=== PATIENT | female | born 1950 | race Caucasian/White ===

== ENCOUNTER 2021-02-13 14:47 | Inpatient (IN) ==
--- NOTE | 2021-02-13 15:21 | Emergency Department Note ---
History of Present Illness General Chief complaint: Leg Injury/Pain Stated complaint: Possible Leg fracture Time Seen by Provider: 02/13/21 15:01 Source: patient History of Present Illness Provider complaint: Right leg pain Onset (ago): month(s) Location: lower extremity and right Radiation: non-radiation Severity: moderate Pain Consistency: + constant Quality: + aching Exacerbated By: + movement (Weightbearing) Associated symptoms: no chest pain, no cough, no fever/chills, no malaise, no nausea/vomiting and no shortness of breath This is a 70-year-old male sent over from her doctor's office due to an abnormal MRI performed on the . The patient states that she has been having right salazar pain since September of last year. She initially had a tib-fib x-ray which showed no fracture and was told that she had sciatica. She was placed on pred nisone which seem to resolve her pain. Her pain went away for 2 weeks but then came back. She describes it as an ache. She rates it as moderate in severity. It is worse when she tries to walk on it. She has not been able to put any weight on it for the past 2 weeks. It is associated with swelling to the right leg. She had seen [facility] and had an MRI of the lumbar spine and tib-fib. She was told that she might have a fracture to the tib-fib and she was sent here. She also has a lesion in her lumbar spine. She has no prior history of cancer and states that she had a normal mammogram recently. She denies any fever, cough or cold symptoms, chest pain, shortness of breath, myalgias, malaise, abdominal pain, vomiting, diarrhea or urinary symptoms. The patient did have a DVT in her left leg 8 years ago and was taken off of anticoagulants about a year ago. She has had no symptoms to her left leg. She denies any trauma to her right leg. She denies any unintentional weight loss but she does state that she has lost about 10 pounds since September because she has not been eating as much. Home Medications Medication Instructions Recorded Confirmed Type hydrochlorothiazide 25 mg PO QAM 02/13/21 02/13/21 History levothyroxine [Synthroid] 50 mcg PO QAM 02/13/21 02/13/21 History potassium 99 mg PO QAM 02/13/21 02/13/21 History turmeric root extract 500 mg PO QAM 02/13/21 02/13/21 History Allergies Allergy/AdvReac Type Severity Reaction Status Date / Time No Known Allergies Allergy Unverified 02/13/21 18:22 Past Med/Surg History Medical History DVT (deep venous thrombosis) Hypothyroidism Family History Mother Breast cancer Social History Smoking Status: Never smoker Feels Safe at Home: Yes Review of Systems See HPI for pertinent positives & negatives. and A total of 10 systems reviewed and were otherwise negative Physical Exam Vital Signs Vital Signs - 24 hr 02/13/21 15:13 02/13/21 17:36 02/13/21 19:29 Temperature 37.2 C Temperature Source Oral Pulse Rate 120 H Pulse Rate [Apical] 80 103 H Pulse Rhythm Irregular Pulse Strength Normal Respiratory Rate 22 18 22 Respiratory Depth Normal Blood Pressure 200/114 H Blood Pressure [Left Arm] 150/88 H 176/139 H Blood Pressure Mean 142 Blood Pressure Mean [Left Arm] 108 151 Pulse Oximetry 95 98 92 Oxygen Delivery Method Room Air Room Air Room Air Sepsis Recent Fever Within 48 Hours No Sepsis New/Unexplained Change in Mental Status No Sepsis Action Taken by Nursing No Action Required Constitutional: Vital signs reviewed. Eyes: Pupils are equal round reactive to light. Conjunctiva are noninjected. ENT: Pharynx is clear without erythema or exudate. Mucous membranes are moist. Neck supple without meningeal signs. Respiratory: Clear to auscultation bilaterally. Breath sounds are equal bilaterally. Cardiovascular: Regular rate and rhythm. No rubs or gallops. GI: Soft, nondistended and nontender. Bowel sounds are present. Musculoskeletal: Swelling to the right lower extremities. Dorsalis pedis pulses 2+. There is tenderness to the anterior lower tib-fib without deformity. There is no tenderness to the calf or gastrocnemius or soleus muscles. No erythema or increased warmth to the right lower extremity. Integumentary: No cyanosis. or jaundice. Neurological: The patient is awake and alert. No focal deficits. Psychiatric: Normal affect. Not anxious appearing. Course Administered Medications Discontinued Medications Enoxaparin Sodium (Enoxaparin 1 Mg/Kg) 120 mg 1 mg/kg (120 mg) SC NOW STA Stop: 02/13/21 18:22 Last Admin: 02/13/21 18:40 Dose: Not Given Documented by: [id number] Enoxaparin Sodium (Enoxaparin Inj 120 Mg/0.8 Ml Syr) 120 mg SQ NOW STA Stop: 02/13/21 18:30 Last Admin: 02/13/21 18:39 Dose: 120 mg Documented by: [id number] Morphine Sulfate (Morphine Sulfate 4 Mg/Ml 1 Ml Carp\\Vial) 4 mg IV NOW STA Stop: 02/13/21 18:05 Last Admin: 02/13/21 18:16 Dose: 4 mg Documented by: [id number] Ondansetron HCl (Ondansetron Inj 2 Mg/Ml 2 Ml Vial) 4 mg IV NOW STA Stop: 02/13/21 18:05 Last Admin: 02/13/21 18:16 Dose: 4 mg Documented by: [id number] Medical Decision Making Differential Diagnosis Breast cancer, colon cancer, metastatic disease, DVT, superficial thrombophlebitis Medical Records Attestation: I reviewed the patient's medical records. I did perform a limited focused review of portions of the patient's old chart on the electronic medical record. The patient has had no prior visits to this hospital. The patient had an MRI at 611 on February 05. MRI of the lumbar spine demonstrates mild to moderate degenerative findings with minimal acute or subacute compression fracture of L2. There is a lesion of low T1 and bright inversion recovery signal on the right side of the L2 vertebral body superiorly. MRI of the tib-fib and calf demonstrates large lesion within the proximal to mid right tibial shaft causing endosteal scalloping. There is marked cortical thinning at the posterior upper portion of lesion; aggressive periostitis noted in this region. This is worrisome for impending fracture. Same-day MRI of the lumbar spine was concerning for a lesion in the L2 vertebral body and a questionable lesion in the left ilium adjacent to the left SI joint. Patchy edema within the distal aspect of the right medial head gastrocnemius muscle and the soleus muscle concerning for myositis. Home Medications Current Medication List: was personally reviewed by me Laboratory Data Attestation: I reviewed the patient's lab results. Result diagrams: 02/13/21 15:35 02/13/21 15:35 Lab Results 02/13/21 02/13/21 02/13/21 Range/Units 15:35 15:35 15:35 WBC 6.29 (4.8-10.8) K/uL RBC 4.89 (4.2-5.4) M/uL Hgb 13.9 (12.0-16.0) g/dL Hct 41.1 (37-47) % MCV 84.0 (80-100) fL MCH 28.4 (25-34) pg MCHC 33.8 (32-36) g/dL RDW Std Deviation 40.9 (36.4-46.3) fL RDW Coeff of Héctor 13.5 (11.5-14.5) % Plt Count 207 (130-400) K/uL MPV 9.2 (7.4-10.4) fL Immature Gran % (Auto) 0.3 % Neut % (Auto) 68.8 % Lymph % (Auto) 21.0 % [place] % (Auto) 7.5 % Eos % (Auto) 1.9 % Baso % (Auto) 0.5 % Neut # (Auto) 4.33 (1.4-6.5) K/uL Lymph # (Auto) 1.32 (1.2-3.4) K/uL [place] # (Auto) 0.47 (0.11-0.59) K/uL Eos # (Auto) 0.12 (0-0.5) K/uL Baso # (Auto) 0.03 (0-0.2) K/uL Immature Gran # (Auto) 0.02 (0.00-0.02) K/uL PT 11.4 (9.0-12.0) Seconds INR 1.1 (0.9-1.1) APTT 22.5 (21.0-31.0) Seconds PTT Ratio 0.9 D-Dimer (0-500) ug/L FEU Sodium 138 (136-145) mmol/L Potassium 3.1 L (3.5-5.1) mmol/L Chloride 106 (98-107) mmol/L Carbon Dioxide 26 (21-32) mmol/L Anion Gap 6.0 (3-11) BUN 13 (7-18) mg/dl Creatinine 0.82 (0.6-1.2) mg/dl Est Cr Clr Drug Dosing 82.1 ml/min Est GFR ( Amer) 85.2 Est GFR (Non-Af Amer) 73.5 BUN/Creatinine Ratio 16.1 (10-20) Glucose 106 H (70-99) mg/dl Calcium 9.5 (8.5-10.1) mg/dl Total Bilirubin 0.7 (0.2-1) mg/dl AST 20 (15-37) U/L ALT 20 (12-78) U/L Alkaline Phosphatase 87 (45-117) U/L Total Protein 8.5 H (6.4-8.2) gm/dl Albumin 3.6 (3.4-5.0) gm/dl Globulin 4.9 H (2.5-4.0) gm/dl Albumin/Globulin Ratio 0.7 L (0.9-2) COVID-19 Eval Order 02/13/21 02/13/21 Range/Units 15:35 18:17 WBC (4.8-10.8) K/uL RBC (4.2-5.4) M/uL Hgb (12.0-16.0) g/dL Hct (37-47) % MCV (80-100) fL MCH (25-34) pg MCHC (32-36) g/dL RDW Std Deviation (36.4-46.3) fL RDW Coeff of Héctor (11.5-14.5) % Plt Count (130-400) K/uL MPV (7.4-10.4) fL Immature Gran % (Auto) % Neut % (Auto) % Lymph % (Auto) % [place] % (Auto) % Eos % (Auto) % Baso % (Auto) % Neut # (Auto) (1.4-6.5) K/uL Lymph # (Auto) (1.2-3.4) K/uL [place] # (Auto) (0.11-0.59) K/uL Eos # (Auto) (0-0.5) K/uL Baso # (Auto) (0-0.2) K/uL Immature Gran # (Auto) (0.00-0.02) K/uL PT (9.0-12.0) Seconds INR (0.9-1.1) APTT (21.0-31.0) Seconds PTT Ratio D-Dimer 7250 H* (0-500) ug/L FEU Sodium (136-145) mmol/L Potassium (3.5-5.1) mmol/L Chloride (98-107) mmol/L Carbon Dioxide (21-32) mmol/L Anion Gap (3-11) BUN (7-18) mg/dl Creatinine (0.6-1.2) mg/dl Est Cr Clr Drug Dosing ml/min Est GFR ( Amer) Est GFR (Non-Af Amer) BUN/Creatinine Ratio (10-20) Glucose (70-99) mg/dl Calcium (8.5-10.1) mg/dl Total Bilirubin (0.2-1) mg/dl AST (15-37) U/L ALT (12-78) U/L Alkaline Phosphatase (45-117) U/L Total Protein (6.4-8.2) gm/dl Albumin (3.4-5.0) gm/dl Globulin (2.5-4.0) gm/dl Albumin/Globulin Ratio (0.9-2) COVID-19 Eval Order CovFluRsv at [facility] Imaging Data Radiologist's Impression: Venous Doppler Study 02/13/21 15:16 ULTRASOUND RIGHT LOWER EXTREMITY VENOUS CLINICAL HISTORY: Right calf pain. COMPARISON STUDY: No priors. TECHNIQUE: Real-time, grayscale, and color Doppler sonography of the deep veins of the right lower extremity was performed from the inguinal crease to the calf. Compression and augmentation were utilized. FINDINGS: There is occlusive deep venous thrombosis identified in the right popliteal vein. This extends into the calf within the posterior tibial and peroneal veins. The common femoral and superficial femoral veins are patent and normally compressible. The greater saphenous vein and the profunda femoris vein at the junction with the common femoral vein are clear. IMPRESSION: There is occlusive deep venous thrombosis identified in the right popliteal vein extending into the calf. See above. ACT 112: Negative or not required by law. Electronically signed by: Nikhil Luna M.D. 02/13/2021 5:21 PM Tibia/Fibula X-Ray 02/13/21 17:09 RIGHT TIBIA AND FIBULA 2 VIEWS CLINICAL HISTORY: Right leg injury. The patient felt a "crack". FINDINGS: AP and lateral views of the right tibia and fibula are obtained. No prior studies are available for comparison at the time of dictation. The skeletal structures are osteopenic. No fibular fracture is identified. There is a permeative/destructive lesion within the proximal tibial shaft which measures 4 cm in length. There is surrounding irregular periosteal, as well as evidence of a nondisplaced pathologic fracture. The knee and ankle joints are grossly maintained. Soft tissue edema is noted in the calf. IMPRESSION: 1. There is a permeative/destructive lesion within the proximal tibial shaft with aggressive appearing periosteal reaction. Neoplasm is the diagnosis of exclusion. 2. There is an associated nondisplaced pathologic fracture through this lesion. 3. Soft tissue edema is noted in the calf. Electronically signed by: Nikhil Luna M.D. 02/13/2021 5:41 PM ECG Data Attestation: I personally reviewed and interpreted this ECG as follows: Indication: + tachycardia Rate (beats per minute): 110 Rhythm: + sinus tachycardia ECG ST segments: no ST elevation ECG Findings: + Other (Baseline motion artifact); no PVCs MDM Narrative I did evaluate the patient as noted above. Patient is presenting with right lower extremity pain since September. She did have an MRI on the eighth of this month of her lumbar spine and tib-fib which showed pathologic lesions at L2 as well as her tibia. She was seen by her primary care physician who sent her here today for further evaluation. IV access was established. I did place an order for continuous cardiac monitoring. The monitor showed sinus tachycardia at rate of 103 bpm. I did order and personally review the patient's 12-lead EKG as de scribed above. There is baseline artifact but she appears to have sinus tachycardia. I did order and personally reviewed the images of the patient's tib-fib x-rays as described above. She has a pathologic fracture of the proximal tibia. I did order and review the patient's blood work as noted in the electronic medical record. CBC is unremarkable. Electrolytes demonstrate a potassium of 3.1 but otherwise unremarkable. She is on a thiazide diuretic. Covid testing is negative. I did order a Doppler ultrasound of the right lower extremity. I did review the images myself as well as the radiology report as described above. She does have a DVT of the right popliteal and tibial veins. I did discuss the test results with the patient. She was given IV morphine and Zofran for pain control. I did discuss case with Dr. Garladn of orthopedics who recommended a long-leg splint. I did order a posterior long-leg splint. She will require further care and evaluation in the hospital. I did discuss risks and benefits of anticoagulation with her. She was agreeable to anticoagulation and given subcu Lovenox. 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, Acute hypokalemia, Acute deep vein thrombosis (DVT) of right lower extremity Patient Disposition: Being Evaluated by Hospitalist Forms Stand Alone Forms: My [facility] Prescriptions Prescriptions: No Action potassium 99 mg Tablet 99 mg PO QAM RF: 0 levothyroxine [Synthroid] 50 mcg tablet 50 mcg PO QAM RF: 0 hydrochlorothiazide 25 mg tablet 25 mg PO QAM RF: 0 turmeric root extract 500 mg Capsule 500 mg PO QAM RF: 0 Referrals Referrals: Monica Fair MD [Primary Care Provider] - Discharge Problem: 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
[2021-02-13 15:50] LABS: Basophils # (auto) 0.03 K/uL (0-0.2); Basophils % (auto) 0.5 %; Eosinophils # (auto) 0.12 K/uL (0-0.5); Eosinophils % (auto) 1.9 %; Hematocrit (blood only) 41.1 % (37-47); Hemoglobin 13.9 g/dL (12.0-16.0); Immature Granulocytes # (auto) 0.02 K/uL (0.00-0.02); Immature Granulocytes % (auto) 0.3 %; Lymphocytes # (auto) 1.32 K/uL (1.2-3.4); Mean Corpuscular Hemoglobin 28.4 pg (25-34); Mean Corpuscular Hgb Conc 33.8 g/dL (32-36); Mean Platelet Volume 9.2 fL (7.4-10.4); Monocytes # (auto) 0.47 K/uL (0.11-0.59); Monocytes % (auto) 7.5 %; Neutrophils # (auto) 4.33 K/uL (1.4-6.5); Neutrophils % (auto) 68.8 %; Platelet Count 207 K/uL (130-400); RDW Coefficient of Variation 13.5 % (11.5-14.5); RDW Standard Deviation 40.9 fL (36.4-46.3); Red Blood Count 4.89 M/uL (4.2-5.4); White Blood Count 6.29 K/uL (4.8-10.8)
[2021-02-13 16:03] LABS: INR 1.1 (0.9-1.1); Partial Thromboplastin Ratio 0.9; Partial Thromboplastin Time 22.5 Seconds (21.0-31.0); Prothrombin Time 11.4 Seconds (9.0-12.0)
[2021-02-13 16:06] LABS: Albumin Level 3.6 gm/dl (3.4-5.0); BUN Creatinine Ratio 16.1 (10-20); Calcium 9.5 mg/dl (8.5-10.1); Creatinine Clr Calc Pharmacy 82.1 ml/min; Est GFR (African American) 85.2; Est GFR (Non-African American) 73.5; Potassium 3.1 mmol/L (3.5-5.1)
[2021-02-13 16:09] LABS: Albumin Globulin Ratio 0.7 (0.9-2); Bilirubin,Total 0.7 mg/dl (0.2-1); Globulin 4.9 gm/dl (2.5-4.0); Total Protein 8.5 gm/dl (6.4-8.2)
--- NOTE | 2021-02-13 17:23 | Ultrasound Report ---
ULTRASOUND RIGHT LOWER EXTREMITY VENOUS CLINICAL HISTORY: Right calf pain. COMPARISON STUDY: No priors. TECHNIQUE: Real-time, grayscale, and color Doppler sonography of the deep veins of the right lower ex tremity was performed from the inguinal crease to the calf. Compression and augmentation were utilize d. FINDINGS: There is occlusive deep venous thrombosis identified in the right popliteal vein. This exte nds into the calf within the posterior tibial and peroneal veins. The common femoral and superficial femoral veins are patent and normally compressible. The greater saphenous vein and the profunda femor is vein at the junction with the common femoral vein are clear. IMPRESSION: There is occlusive deep venous thrombosis identified in the right popliteal vein extendin g into the calf. See above. ACT 112: Negative or not required by law. Electronically signed by: Nikhil Luna M.D. 02/13/2021 5:21 PM
--- NOTE | 2021-02-13 17:42 | XRay Report ---
RIGHT TIBIA AND FIBULA 2 VIEWS CLINICAL HISTORY: Right leg injury. The patient felt a "crack". FINDINGS: AP and lateral views of the right tibia and fibula are obtained. No prior studies are avail able for comparison at the time of dictation. The skeletal structures are osteopenic. No fibular frac ture is identified. There is a permeative/destructive lesion within the proximal tibial shaft which m easures 4 cm in length. There is surrounding irregular periosteal, as well as evidence of a nondispla [place] pathologic fracture. The knee and ankle joints are grossly maintained. Soft tissue edema is noted in the calf. IMPRESSION: 1. There is a permeative/destructive lesion within the proximal tibial shaft with aggressive appearin g periosteal reaction. Neoplasm is the diagnosis of exclusion. 2. There is an associated nondisplaced pathologic fracture through this lesion. 3. Soft tissue edema is noted in the calf. Electronically signed by: Nikhil Luna M.D. 02/13/2021 5:41 PM
[2021-02-13] MEDS ORDERED: MoRPHine SULFATE 4 MG/ML 1 ML CARP\\VIAL IV STA (18:04)
[2021-02-13] MEDS ORDERED: ONDANSETRON INJ 2 MG/ML 2 ML VIAL IV STA (18:04)
[2021-02-13] MEDS ORDERED: ENOXAPARIN 1 MG/KG SC STA (18:21)
[2021-02-13] MEDS ORDERED: ENOXAPARIN INJ 120 MG/0.8 ML SYR SQ STA (18:29)
[2021-02-13 19:12] LABS: D Dimer 7250 ug/L FEU (0-500)
[2021-02-13 19:41] LABS: Influenza A virus by PCR Negative (Neg); Influenza B virus by PCR Negative (Neg); RSV by PCR Negative (Neg); SARS CoV2 RNA(COVID-19) InHosp NEGATIVE (Negative)
--- NOTE | 2021-02-13 19:47 | XRay Report ---
SINGLE VIEW CHEST CLINICAL HISTORY: Destructive bony lesion of the right tibia. FINDINGS: An AP, portable, upright chest radiograph is obtained. No prior studies are available for c omparison at the time of dictation. The heart is enlarged. The pulmonary vasculature is noncongested. There is mild bibasilar scarring/atelectasis. No airspace consolidation or large pleural effusion is identified. No pneumothorax is seen. The skeletal structures are osteopenic. The bony thorax is chester sly intact. IMPRESSION: Cardiomegaly with no active disease in the chest. ACT 112: Negative or not required by law. Electronically signed by: Nikhil Luna M.D. 02/13/2021 7:46 PM
[2021-02-13] MEDS ORDERED: POTASSIUM CHLORIDE CRTAB 20 MEQ TABCR PO STA (19:54)
--- NOTE | 2021-02-13 19:54 | History & Physical Report ---
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: Right leg pain since September Large lesion within the proximal to mid right tibial shaft in MRI on 02/04/2021 MRI of the lumbar spine showed mild to moderate degenerative findings in the lumbar spine, minimal acute or subacute compression fracture of L2 vertebral body, relation of low T1 and bright inversion recovery signal in the right side of the L2 vertebral body possible etiologies include atypical appearing benign hemangioma versus malignant neoplasm Abnormal pharmaceutical localization at the junction of the proximal and mid third of the right tibia, anterior aspect of the left third rib and several foci throughout the calvarium suggesting underlying metastatic disease Nondisplaced pathological fracture involving the proximal tibial shaft with aggressive periosteal reaction Suggestive of neoplasm/multiple myeloma Ortho consulted We will keep the leg immobilized Multiple bone lesions involving the ribs, spine, skeletal bone and calvarium suggesting possible bone malignancy/secondary/multiple myeloma Negative colonoscopy 4 years ago R/O any Ovarian/Uterine pathology (2) Acute deep vein thrombosis (DVT) of right lower extremity: History of prothrombin gene mutation and DVT Not been taking anticoagulation for long time Noted to have right proximal popliteal DVTs Discussed with the patient and will start Lovenox D-dimer is elevated and will get CTA to rule out pulmonary embolism (3) Hypothyroidism: Continue replacement (4) Acute hypokalemia: We will give supplement and hold hydrochlorothiazide (5) Prothrombin gene mutation: (6) Myositis: 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 She went to see her new PCP today at [facility] and when she was trying to climb up to the examination table she got more pain involving the right leg and from that point she was brought into the emergency room for further evaluation. She does not have any pain at rest and she denies any other symptoms of fever and/or chills, cough or phlegm, palpitation, any abdominal pain nausea and/or vomiting. She has had right leg pain since September and has had course of prednisone with improvement in the past. She underwent an MRI of the tibia-fibula on eighth of this month and that showed large lesion within the proximal mid to right tibial shaft with marked cortical thinning at the posterior upper portion of this lesion and aggressive periostitis noted at this lesion too. The scan also showed myositis involving the right medial head of gastrocnemius muscle. She also had a bone scan done on of this month which showed abnormal pharmaceutical localization at the junction of the proximal and middle third of the right tibia and other area as mentioned below. At the emergency room she was hemodynamically stable with blood pressure on the upper side and the x-ray of the right tibia-fibula showed pathological fracture and also noted to have deep venous thrombosis involving the lower extremity. Her D-dimer was markedly elevated and she will have a CT air to rule out pulmonary embolism as well. Was admitted to medical telemetry unit for continuation of care Allergies Allergy/AdvReac Type Severity Reaction Status Date / Time No Known Allergies Allergy Unverified 02/13/21 18:22 Home Medications Medication Instructions Recorded Confirmed Type hydrochlorothiazide 25 mg PO QAM 02/13/21 02/13/21 History levothyroxine [Synthroid] 50 mcg PO QAM 02/13/21 02/13/21 History potassium 99 mg PO QAM 02/13/21 02/13/21 History turmeric root extract 500 mg PO QAM 02/13/21 02/13/21 History Past Med/Surg History Medical History DVT (deep venous thrombosis) Hypothyroidism Family History Mother Breast cancer Social History Smoking Status: Never smoker Second Hand Exposure: No; Do You Dip or Chew Tobacco: No; Tobacco Cessation Education Requested by Patient: No Hx Alcohol Use: No Hx Substance Use: No Preferred Language: Scottish Communication Ability: Effective Beliefs That Will Affect Care: None Current Living Situation: Spouse Other Information That Helps Us Care for You: No Feels Safe at Home: Yes Safety Concerns: Feels Safe At This Time Assistive Devices: None Review of Systems Review of Systems: All systems reviewed & are unremarkable except as noted in HPI & below Physical Exam Physical Exam: Lying in bed comfortably Constitutional: well developed, well nourished and + obese; not ill appearing Eyes: PERRL, conjunctivae normal, anicteric sclerae ENMT: external ear and nose normal, oropharynx normal Neck: trachea midline, no thyromegaly Respiratory: no respiratory distress Auscultation: lungs clear to auscultation bilaterally Cardiovascular: Rate/Rhythm: regular rate, regular rhythm and + tachycardic Heart Sounds: no murmur Extremities: + edema (Trace edema bilaterally) Gastrointestinal (Abdomen): Inspection/Auscultation: normal bowel sounds; abdomen not distended Percussion/Palpation: abdomen soft; abdomen nontender Musculoskeletal: Pain in the right leg with movement Neurologic: Alert awake and oriented x3, no focal sensory or motor deficit appreciated Psychiatric: A+Ox3, euthymic affect Results & Data Results & Data ([facility]) Vital Signs (Past 12 Hours) Vital Signs Temp Pulse Pulse Resp BP BP Pulse Ox 02/13/21 19:29 103 H 22 176/139 H 92 02/13/21 17:36 80 18 150/88 H 98 02/13/21 15:13 37.2 C 120 H 22 200/114 H 95 Laboratory Results Short CBC 02/13/21 Range/Units 15:35 WBC 6.29 (4.8-10.8) K/uL Hgb 13.9 (12.0-16.0) g/dL Hct 41.1 (37-47) % Plt Count 207 (130-400) K/uL BMP 02/13/21 15:35 Sodium 138 Potassium 3.1 L Chloride 106 Carbon Dioxide 26 BUN 13 Creatinine 0.82 Glucose 106 H Calcium 9.5 Liver Function 02/13/21 Range/Units 15:35 Total Bilirubin 0.7 (0.2-1) mg/dl AST 20 (15-37) U/L ALT 20 (12-78) U/L Alkaline Phosphatase 87 (45-117) U/L Albumin 3.6 (3.4-5.0) gm/dl Medications Administered Current Inpatient Medications Enoxaparin Sodium (Enoxaparin Inj 120 Mg/0.8 Ml Syr) 120 mg SQ Q12H ALINA Stop: 03/16/21 08:59 Code Status & VTE Plan VTE Prophylaxis Plan VTE Prophylaxis will be ordered: Yes (1) 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
[2021-02-13] MEDS ORDERED: OPTIRAY 350 500ml IV ONE (20:44)
[2021-02-13] MEDS ORDERED: amLODIPine BESYLATE 5 MG TAB PO STA (21:07)
--- NOTE | 2021-02-13 21:16 | CT Scan Report ---
CT ANGIOGRAM OF THE CHEST CLINICAL HISTORY: Dyspnea. Deep venous thrombosis. COMPARISON STUDY: Chest x-ray dated 02/13/2021. TECHNIQUE: Following the IV administration of 102 cc of Optiray 350, CT angiogram of the chest was pe rformed from the upper abdomen to the thoracic inlet utilizing the pulmonary embolus protocol. Images are reviewed in the axial, sagittal, and coronal planes. 3-D MIPS images are created and assessed. I V contrast was administered without complication. A dose lowering technique was utilized adhering to the principles of ALARA. CT DOSE: 636.19 mGy.cm FINDINGS: Thyroid: Imaged portions of the thyroid gland are normal in size and attenuation. Thoracic aorta: The thoracic aorta is normal in caliber and demonstrates standard 3-vessel arch anato my. No dissection is seen. Pulmonary vasculature: The pulmonary trunk is normal in caliber. There are small peripheral pulmonary emboli within distal segmental/subsegmental branches the right lower lobe pulmonary artery. The ángel ining pulmonary vessels appear clear. Heart: The heart is enlarged and and without pericardial effusion. Lungs and pleural spaces: There is no airspace consolidation or pleural effusion. Dependent atelectas is is noted at the lung bases. The trachea and central airways are clear. No concerning pulmonary les ion is identified. Mediastinum: There is no mediastinal lymphadenopathy. Ekaterina: Clear. Axillae: There is no axillary lymphadenopathy. Upper abdomen: There is a 1.3 cm peripherally calcified splenic artery aneurysm. A small hiatal herni a is noted. Skeletal structures: The skeletal structures are osteopenic. Mild degenerative change is seen through out the thoracic spine. Arthritic change is noted in the shoulders. No lytic or blastic bony lesions are seen. IMPRESSION: 1. There are small/peripheral distal segmental/subsegmental pulmonary emboli within branches of the r ight lower lobe pulmonary artery. 2. Cardiomegaly. 3. There is no airspace consolidation or pleural effusion. 4. Additional findings as above. ACT 112: Negative or not required by law. Electronically signed by: Nikhil Luna M.D. 02/13/2021 9:14 PM
[2021-02-13] MEDS: NSS + 20MEQ KCL 20 MEQ/1,000 ML BAG IV SCH (22:32)
[2021-02-13] MEDS: HYDROmorphone INJ 0.5 MG/0.5 ML SYR IV PRN (22:33)
[2021-02-14] MEDS: ENOXAPARIN INJ 120 MG/0.8 ML SYR SQ SCH ×2 (06:21→20:07)
[2021-02-14] MEDS: LEVOTHYROXINE SODIUM 50 MCG TABLET PO SCH (06:22)
[2021-02-14 07:39] LABS: Basophils # (auto) 0.02 K/uL (0-0.2); Basophils % (auto) 0.3 %; Eosinophils # (auto) 0.12 K/uL (0-0.5); Eosinophils % (auto) 1.8 %; Hematocrit (blood only) 38.7 % (37-47); Immature Granulocytes # (auto) 0.01 K/uL (0.00-0.02); Immature Granulocytes % (auto) 0.2 %; Lymphocytes # (auto) 1.34 K/uL (1.2-3.4); Lymphocytes % (auto) 20.2 %; Mean Corpuscular Hemoglobin 28.5 pg (25-34); Mean Corpuscular Hgb Conc 33.6 g/dL (32-36); Mean Corpuscular Volume 84.9 fL (80-100); Mean Platelet Volume 9.5 fL (7.4-10.4); Monocytes # (auto) 0.76 K/uL (0.11-0.59); Monocytes % (auto) 11.4 %; Neutrophils # (auto) 4.39 K/uL (1.4-6.5); Neutrophils % (auto) 66.1 %; Platelet Count 210 K/uL (130-400); RDW Coefficient of Variation 13.9 % (11.5-14.5); RDW Standard Deviation 42.7 fL (36.4-46.3); Red Blood Count 4.56 M/uL (4.2-5.4); White Blood Count 6.64 K/uL (4.8-10.8)
[2021-02-14 08:01] LABS: BUN Creatinine Ratio 13.7 (10-20); Calcium 8.4 mg/dl (8.5-10.1); Creatinine Clr Calc Pharmacy 83.1 ml/min; Est GFR (African American) 89.1; Est GFR (Non-African American) 76.9; Potassium 3.8 mmol/L (3.5-5.1)
[2021-02-14] MEDS: amLODIPine BESYLATE 5 MG TAB PO SCH (08:06)
--- NOTE | 2021-02-14 10:03 | Orthopedic Consultation ---
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 Patient currently being worked up for primary cancer, agree with consultation with heme-onc, for definitive treatment of right tibia we would like close follow-up[facility] for now maintain splint immobilization, pain control, nonweightbearing right lower extremity, will defer to the medical team for pharmacologic DVT treatment. Thank you for the consultation. History of Present Illness Reason for Consultation: Right tibia pathologic fracture Attending Physician: Adalberto Dickerson MD History of Present Illness The patient is a 70-year-old female who with no previous history of cancer who presented to [facility] on 02/13/2021 secondary to increasing pain and inability to ambulate on her right lower extremity. Has been followed by Dr. Puente over the last several months due to increasing pain to her right lower extremity, diagnosed with right tibia bone lesion underwent MRI and bone scan and was in the process for further work-up with Dr. Taylor for which she has an appointment with on 02/20/2021. Also was establishing a new PCP with Louie on 02/13/2021 when she was transferring to the exam table she felt increasing pain to her right lower extremity and subsequently transferred to the emergency department and x-rays obtained demonstrated a nondisplaced pathologic fracture of her right proximal one third tibia. Patient also has lesions on left third rib and L2. Patient denies any significant weight loss, night sweats, has family history of breast cancer however recent mammogram negative. Allergies Allergy/AdvReac Type Severity Reaction Status Date / Time No Known Allergies Allergy Unverified 02/13/21 18:22 Home Medications Medication Instructions Recorded Confirmed Type hydrochlorothiazide 25 mg PO QAM 02/13/21 02/13/21 History levothyroxine [Synthroid] 50 mcg PO QAM 02/13/21 02/13/21 History potassium 99 mg PO QAM 02/13/21 02/13/21 History turmeric root extract 500 mg PO QAM 02/13/21 02/13/21 History Patient History Medical History DVT (deep venous thrombosis) Hypothyroidism Family History Mother Breast cancer Social History Smoking Status: Never smoker Second Hand Exposure: No; Do You Dip or Chew Tobacco: No; Tobacco Cessation Education Requested by Patient: No Hx Alcohol Use: No Hx Substance Use: No Preferred Language: Irish Communication Ability: Effective Beliefs That Will Affect Care: None Current Living Situation: Spouse Other Information That Helps Us Care for You: No Feels Safe at Home: Yes Safety Concerns: Feels Safe At This Time Assistive Devices: None Review of Systems Review of Systems: All systems reviewed & are unremarkable except as noted in HPI & below Constitutional: as per Subjective / HPI Physical Exam Physical Exam: Right lower extremity is neurovascular and sensory intact grossly, splint immobilization in place, compartment soft nontender. Constitutional: WD/WN, vitals as above Results & Data ([facility]) Vital Signs (Past 12 Hours) Vital Signs Temp Pulse Pulse Resp BP Pulse Ox 02/14/21 08:46 112 H 02/14/21 07:34 36.8 C 110 H 18 128/79 94 02/14/21 03:16 36.4 C L 102 H 16 135/85 96 02/13/21 23:59 106 H 02/13/21 23:07 118 H Laboratory Results 02/14/21 02/14/21 02/14/21 Range/Units 07:15 07:15 07:15 WBC (4.8-10.8) K/uL RBC (4.2-5.4) M/uL Hgb (12.0-16.0) g/dL Hct (37-47) % MCV (80-100) fL MCH (25-34) pg MCHC (32-36) g/dL RDW Std Deviation (36.4-46.3) fL RDW Coeff of Héctor (11.5-14.5) % Plt Count (130-400) K/uL MPV (7.4-10.4) fL Immature Gran % (Auto) % Neut % (Auto) % Lymph % (Auto) % [place] % (Auto) % Eos % (Auto) % Baso % (Auto) % Neut # (Auto) (1.4-6.5) K/uL Lymph # (Auto) (1.2-3.4) K/uL [place] # (Auto) (0.11-0.59) K/uL Eos # (Auto) (0-0.5) K/uL Baso # (Auto) (0-0.2) K/uL Immature Gran # (Auto) (0.00-0.02) K/uL PT (9.0-12.0) Seconds INR (0.9-1.1) APTT (21.0-31.0) Seconds PTT Ratio D-Dimer (0-500) ug/L FEU Sodium (136-145) mmol/L Potassium (3.5-5.1) mmol/L Chloride (98-107) mmol/L Carbon Dioxide (21-32) mmol/L Anion Gap (3-11) BUN (7-18) mg/dl Creatinine (0.6-1.2) mg/dl Est Cr Clr Drug Dosing ml/min Est GFR ( Amer) Est GFR (Non-Af Amer) BUN/Creatinine Ratio (10-20) Glucose (70-99) mg/dl Calcium (8.5-10.1) mg/dl Total Bilirubin (0.2-1) mg/dl AST (15-37) U/L ALT (12-78) U/L Alkaline Phosphatase (45-117) U/L Total Protein (6.4-8.2) gm/dl Total Protein (PEP) Albumin (3.4-5.0) gm/dl Albumin (PEP) Globulin (2.5-4.0) gm/dl Albumin/Globulin Ratio (0.9-2) Qadcc-0-Dsisvbpmw Qzoob-1-Rvoxvvawf Ckoy-0-Lptwwqvv Qxpw-2-Swsqwewj Gamma Globulins Monoclonal Peak 3 Ser Monoclonl Protein Ser Monoclonal Prot 2 PEP Interpretation Carcinoembryonic Ag < 0.5 (0-2.5) ng/ml CA 19-9 Antigen Pending CA 125 Antigen Pending TSH Pending Serum Immunofixation COVID-19 Eval Order SARS-CoV-2 (PCR) (Negative) Influenza Type A (PCR) (Neg) Influenza Type B (PCR) (Neg) RSV (RT-PCR) (Neg) 02/14/21 02/14/21 02/14/21 Range/Units 07:15 07:15 07:15 WBC 6.64 (4.8-10.8) K/uL RBC 4.56 (4.2-5.4) M/uL Hgb 13.0 (12.0-16.0) g/dL Hct 38.7 (37-47) % MCV 84.9 (80-100) fL MCH 28.5 (25-34) pg MCHC 33.6 (32-36) g/dL RDW Std Deviation 42.7 (36.4-46.3) fL RDW Coeff of Héctor 13.9 (11.5-14.5) % Plt Count 210 (130-400) K/uL MPV 9.5 (7.4-10.4) fL Immature Gran % (Auto) 0.2 % Neut % (Auto) 66.1 % Lymph % (Auto) 20.2 % [place] % (Auto) 11.4 % Eos % (Auto) 1.8 % Baso % (Auto) 0.3 % Neut # (Auto) 4.39 (1.4-6.5) K/uL Lymph # (Auto) 1.34 (1.2-3.4) K/uL [place] # (Auto) 0.76 H (0.11-0.59) K/uL Eos # (Auto) 0.12 (0-0.5) K/uL Baso # (Auto) 0.02 (0-0.2) K/uL Immature Gran # (Auto) 0.01 (0.00-0.02) K/uL PT (9.0-12.0) Seconds INR (0.9-1.1) APTT (21.0-31.0) Seconds PTT Ratio D-Dimer (0-500) ug/L FEU Sodium 139 (136-145) mmol/L Potassium 3.8 D (3.5-5.1) mmol/L Chloride 107 (98-107) mmol/L Carbon Dioxide 28 (21-32) mmol/L Anion Gap 4.0 (3-11) BUN 11 (7-18) mg/dl Creatinine 0.79 (0.6-1.2) mg/dl Est Cr Clr Drug Dosing 83.1 ml/min Est GFR ( Amer) 89.1 Est GFR (Non-Af Amer) 76.9 BUN/Creatinine Ratio 13.7 (10-20) Glucose 98 (70-99) mg/dl Calcium 8.4 L (8.5-10.1) mg/dl Total Bilirubin (0.2-1) mg/dl AST (15-37) U/L ALT (12-78) U/L Alkaline Phosphatase (45-117) U/L Total Protein (6.4-8.2) gm/dl Total Protein (PEP) Pending Albumin (3.4-5.0) gm/dl Albumin (PEP) Pending Globulin (2.5-4.0) gm/dl Albumin/Globulin Ratio (0.9-2) Ggnbs-7-Yfzhhxmqn Pending Wenub-7-Giydxaptu Pending Qlbh-7-Ecwdxikz Pending Nlfd-1-Ylvnucxw Pending Gamma Globulins Pending Monoclonal Peak 3 Pending Ser Monoclonl Protein Pending Ser Monoclonal Prot 2 Pending PEP Interpretation Pending Carcinoembryonic Ag (0-2.5) ng/ml CA 19-9 Antigen CA 125 Antigen TSH Serum Immunofixation Pending COVID-19 Eval Order SARS-CoV-2 (PCR) (Negative) Influenza Type A (PCR) (Neg) Influenza Type B (PCR) (Neg) RSV (RT-PCR) (Neg) 02/13/21 02/13/21 02/13/21 Range/Units 18:17 18:17 15:35 WBC (4.8-10.8) K/uL RBC (4.2-5.4) M/uL Hgb (12.0-16.0) g/dL Hct (37-47) % MCV (80-100) fL MCH (25-34) pg MCHC (32-36) g/dL RDW Std Deviation (36.4-46.3) fL RDW Coeff of Héctor (11.5-14.5) % Plt Count (130-400) K/uL MPV (7.4-10.4) fL Immature Gran % (Auto) % Neut % (Auto) % Lymph % (Auto) % [place] % (Auto) % Eos % (Auto) % Baso % (Auto) % Neut # (Auto) (1.4-6.5) K/uL Lymph # (Auto) (1.2-3.4) K/uL [place] # (Auto) (0.11-0.59) K/uL Eos # (Auto) (0-0.5) K/uL Baso # (Auto) (0-0.2) K/uL Immature Gran # (Auto) (0.00-0.02) K/uL PT (9.0-12.0) Seconds INR (0.9-1.1) APTT (21.0-31.0) Seconds PTT Ratio D-Dimer 7250 H* (0-500) ug/L FEU Sodium (136-145) mmol/L Potassium (3.5-5.1) mmol/L Chloride (98-107) mmol/L Carbon Dioxide (21-32) mmol/L Anion Gap (3-11) BUN (7-18) mg/dl Creatinine (0.6-1.2) mg/dl Est Cr Clr Drug Dosing ml/min Est GFR ( Amer) Est GFR (Non-Af Amer) BUN/Creatinine Ratio (10-20) Glucose (70-99) mg/dl Calcium (8.5-10.1) mg/dl Total Bilirubin (0.2-1) mg/dl AST (15-37) U/L ALT (12-78) U/L Alkaline Phosphatase (45-117) U/L Total Protein (6.4-8.2) gm/dl Total Protein (PEP) Albumin (3.4-5.0) gm/dl Albumin (PEP) Globulin (2.5-4.0) gm/dl Albumin/Globulin Ratio (0.9-2) Souio-4-Okrbnjtqd Nppok-4-Oxqsikvte Axad-9-Decgbddk Wdni-4-Hqbtooad Gamma Globulins Monoclonal Peak 3 Ser Monoclonl Protein Ser Monoclonal Prot 2 PEP Interpretation Carcinoembryonic Ag (0-2.5) ng/ml CA 19-9 Antigen CA 125 Antigen TSH Serum Immunofixation COVID-19 Eval Order [facility] at [facility] SARS-CoV-2 (PCR) NEGATIVE (Negative) Influenza Type A (PCR) Negative (Neg) Influenza Type B (PCR) Negative (Neg) RSV (RT-PCR) Negative (Neg) 02/13/21 02/13/21 02/13/21 Range/Units 15:35 15:35 15:35 WBC 6.29 (4.8-10.8) K/uL RBC 4.89 (4.2-5.4) M/uL Hgb 13.9 (12.0-16.0) g/dL Hct 41.1 (37-47) % MCV 84.0 (80-100) fL MCH 28.4 (25-34) pg MCHC 33.8 (32-36) g/dL RDW Std Deviation 40.9 (36.4-46.3) fL RDW Coeff of Héctor 13.5 (11.5-14.5) % Plt Count 207 (130-400) K/uL MPV 9.2 (7.4-10.4) fL Immature Gran % (Auto) 0.3 % Neut % (Auto) 68.8 % Lymph % (Auto) 21.0 % [place] % (Auto) 7.5 % Eos % (Auto) 1.9 % Baso % (Auto) 0.5 % Neut # (Auto) 4.33 (1.4-6.5) K/uL Lymph # (Auto) 1.32 (1.2-3.4) K/uL [place] # (Auto) 0.47 (0.11-0.59) K/uL Eos # (Auto) 0.12 (0-0.5) K/uL Baso # (Auto) 0.03 (0-0.2) K/uL Immature Gran # (Auto) 0.02 (0.00-0.02) K/uL PT 11.4 (9.0-12.0) Seconds INR 1.1 (0.9-1.1) APTT 22.5 (21.0-31.0) Seconds PTT Ratio 0.9 D-Dimer (0-500) ug/L FEU Sodium 138 (136-145) mmol/L Potassium 3.1 L (3.5-5.1) mmol/L Chloride 106 (98-107) mmol/L Carbon Dioxide 26 (21-32) mmol/L Anion Gap 6.0 (3-11) BUN 13 (7-18) mg/dl Creatinine 0.82 (0.6-1.2) mg/dl Est Cr Clr Drug Dosing 82.1 ml/min Est GFR ( Amer) 85.2 Est GFR (Non-Af Amer) 73.5 BUN/Creatinine Ratio 16.1 (10-20) Glucose 106 H (70-99) mg/dl Calcium 9.5 (8.5-10.1) mg/dl Total Bilirubin 0.7 (0.2-1) mg/dl AST 20 (15-37) U/L ALT 20 (12-78) U/L Alkaline Phosphatase 87 (45-117) U/L Total Protein 8.5 H (6.4-8.2) gm/dl Total Protein (PEP) Albumin 3.6 (3.4-5.0) gm/dl Albumin (PEP) Globulin 4.9 H (2.5-4.0) gm/dl Albumin/Globulin Ratio 0.7 L (0.9-2) Nqhld-0-Kyweawhby Wapfp-9-Njsinjrsb Ykbl-0-Jcdgtjfu Whvc-3-Hixpcqkq Gamma Globulins Monoclonal Peak 3 Ser Monoclonl Protein Ser Monoclonal Prot 2 PEP Interpretation Carcinoembryonic Ag (0-2.5) ng/ml CA 19-9 Antigen CA 125 Antigen TSH Serum Immunofixation COVID-19 Eval Order SARS-CoV-2 (PCR) (Negative) Influenza Type A (PCR) (Neg) Influenza Type B (PCR) (Neg) RSV (RT-PCR) (Neg) Diagnostic Findings RIGHT TIBIA AND FIBULA 2 VIEWS CLINICAL HISTORY: Right leg injury. The patient felt a "crack". FINDINGS: AP and lateral views of the right tibia and fibula are obtained. No prior studies are available for comparison at the time of dictation. The skeletal structures are osteopenic. No fibular fracture is identified. There is a permeative/destructive lesion within the proximal tibial shaft which measures 4 cm in length. There is surrounding irregular periosteal, as well as evidence of a nondisplaced pathologic fracture. The knee and ankle joints are grossly maintained. Soft tissue edema is noted in the calf. IMPRESSION: 1. There is a permeative/destructive lesion within the proximal tibial shaft with aggressive appearing periosteal reaction. Neoplasm is the diagnosis of exclusion. 2. There is an associated nondisplaced pathologic fracture through this lesion. 3. Soft tissue edema is noted in the calf. 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
[2021-02-14] MEDS: NSS + 20MEQ KCL 20 MEQ/1,000 ML BAG IV SCH ×2 (10:37→21:05)
[2021-02-14] MEDS: HYDROmorphone INJ 0.5 MG/0.5 ML SYR IV PRN ×2 (10:51→21:02)
--- NOTE | 2021-02-14 11:44 | Hospitalist Progress Note ---
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: Right leg pain since September Large lesion within the proximal to mid right tibial shaft in MRI on 02/04/2021 MRI of the lumbar spine showed mild to moderate degenerative findings in the lumbar spine, minimal acute or subacute compression fracture of L2 vertebral body, relation of low T1 and bright inversion recovery signal in the right side of the L2 vertebral body possible etiologies include atypical appearing benign hemangioma versus malignant neoplasm Abnormal pharmaceutical localization at the junction of the proximal and mid third of the right tibia, anterior aspect of the left third rib and several foci throughout the calvarium suggesting underlying metastatic disease Nondisplaced pathological fracture involving the proximal tibial shaft with aggressive periosteal reaction Suggestive of neoplasm/multiple myeloma Ortho consulted-appreciate input and recommendation We will keep appointment with the orthopedic surgeon from [place] We will keep the leg immobilized Denies any pain at rest Multiple bone lesions involving the ribs, spine, skeletal bone and calvarium suggesting possible bone malignancy/secondary/multiple myeloma Increased total protein-we will get work-up for multiple myeloma Negative colonoscopy 4 years ago R/O any Ovarian/Uterine pathology CEA-normal, TSH normal CA 199 and CA-125 are pending Multiple myeloma work-up is pending to (2) Acute deep vein thrombosis (DVT) of right lower extremity: History of prothrombin gene mutation and DVT Not been taking anticoagulation for long time Noted to have right proximal popliteal DVTs Discussed with the patient and will start Lovenox CTA did show -small/peripheral distal segmental/subsegmental pulmonary emboli within branches of the right lower lobe pulmonary artery We will continue subcu Lovenox for now and will discuss with the oncologist for further management (3) Hypothyroidism: Continue replacement (4) Acute hypokalemia: We will give supplement and hold hydrochlorothiazide Potassium has been normalized (5) Prothrombin gene mutation: (6) Myositis: MRI scan did show associated myositis involving right medial head of gastrocnemius Likely discharge on Tuesday Admission and Anticipated Discharge Date Admission Date: February 13, 2021 Subjective 02/14/2021 The patient was seen and examined in medical telemetry unit She denies any pain in the leg today Denies any other symptoms Review of Systems Review of Systems: All systems reviewed and are unremarkable except as noted below Musculoskeletal: Pain in the right leg with movement and weightbearing Physical Exam Physical Exam: Lying in bed comfortably Constitutional: well developed, well nourished and + obese; not ill appearing Eyes: PERRL, conjunctivae normal, anicteric sclerae ENMT: external ear and nose normal, oropharynx normal Neck: trachea midline, no thyromegaly Respiratory: no respiratory distress Auscultation: lungs clear to auscultation bilaterally Cardiovascular: Rate/Rhythm: regular rate, regular rhythm and + tachycardic Heart Sounds: no murmur Extremities: + edema (Trace edema bilaterally) Gastrointestinal (Abdomen): Inspection/Auscultation: normal bowel sounds; abdomen not distended Percussion/Palpation: abdomen soft; abdomen nontender Musculoskeletal: Minimal tenderness over right upper fibula Psychiatric: A+Ox3, euthymic affect Results & Data Results & Data ([facility]) Vital Signs (Past 12 Hours) Vital Signs Temp Pulse Pulse Resp BP Pulse Ox 02/14/21 11:26 37.0 C 100 H 18 121/84 92 02/14/21 08:46 112 H 02/14/21 07:34 36.8 C 110 H 18 128/79 94 02/14/21 03:16 36.4 C L 102 H 16 135/85 96 02/13/21 23:59 106 H Laboratory Results Short CBC 02/13/21 02/14/21 Range/Units 15:35 07:15 WBC 6.29 6.64 (4.8-10.8) K/uL Hgb 13.9 13.0 (12.0-16.0) g/dL Hct 41.1 38.7 (37-47) % Plt Count 207 210 (130-400) K/uL BMP 02/13/21 02/14/21 15:35 07:15 Sodium 138 139 Potassium 3.1 L 3.8 D Chloride 106 107 Carbon Dioxide 26 28 BUN 13 11 Creatinine 0.82 0.79 Glucose 106 H 98 Calcium 9.5 8.4 L Liver Function 02/13/21 Range/Units 15:35 Total Bilirubin 0.7 (0.2-1) mg/dl AST 20 (15-37) U/L ALT 20 (12-78) U/L Alkaline Phosphatase 87 (45-117) U/L Albumin 3.6 (3.4-5.0) gm/dl Medications Administered Current Inpatient Medications Amlodipine Besylate (Amlodipine Besylate 5 Mg Tab) [address] [facility] Stop: 03/16/21 08:59 Last Admin: 02/14/21 08:06 Dose: 5 mg Documented by: Enoxaparin Sodium (Enoxaparin Inj 120 Mg/0.8 Ml Syr) [address] [facility] Stop: 03/16/21 06:59 Last Admin: 02/14/21 06:21 Dose: 120 mg Documented by: Hydromorphone HCl (Hydromorphone Inj 0.5 Mg/0.5 Ml Syr) 0.5 mg IV Q4H PRN PRN Reason: Pain Stop: 02/27/21 19:54 Last Admin: 02/14/21 10:51 Dose: 0.5 mg Documented by: Potassium Chloride/Sodium Chloride (Normal Saline W/20 Meq Kcl) 20 meq in 1,000 mls @ 80 mls/hr IV .[id number] [facility] Stop: 02/15/21 11:29 Last Admin: 02/14/21 10:37 Dose: 80 mls/hr Documented by: Levothyroxine Sodium (Levothyroxine Sodium 50 Mcg Tablet) [address] 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
--- NOTE | 2021-02-14 18:38 | Electrocardiogram Report ---
Test Reason : Blood Pressure : / mmHG Vent. Rate : 104 BPM Atrial Rate : 113 BPM P-R Int : 000 ms QRS Dur : 084 ms QT Int : 342 ms P-R-T Axes : 000 -04 -28 degrees QTc Int : 449 ms Atrial fibrillation with rapid ventricular response Inferior infarct , age undetermined Incomplete right bundle branch block Abnormal ECG No previous ECGs available Confirmed by Manjit Diaz ([id number]) on 02/14/2021 6:38:14 PM Referred By: REFERRED SELF Confirmed By:Lorne Diaz
[2021-02-15] MEDS: ENOXAPARIN INJ 120 MG/0.8 ML SYR SQ SCH ×2 (06:00→20:08)
[2021-02-15] MEDS: LEVOTHYROXINE SODIUM 50 MCG TABLET PO SCH (06:00)
[2021-02-15 06:55] LABS: Basophils # (auto) 0.03 K/uL (0-0.2); Basophils % (auto) 0.5 %; Eosinophils # (auto) 0.17 K/uL (0-0.5); Eosinophils % (auto) 2.9 %; Hematocrit (blood only) 39.5 % (37-47); Hemoglobin 13.2 g/dL (12.0-16.0); Immature Granulocytes # (auto) 0.02 K/uL (0.00-0.02); Immature Granulocytes % (auto) 0.3 %; Lymphocytes % (auto) 22.5 %; Mean Corpuscular Hemoglobin 28.3 pg (25-34); Mean Corpuscular Hgb Conc 33.4 g/dL (32-36); Mean Corpuscular Volume 84.8 fL (80-100); Mean Platelet Volume 9.4 fL (7.4-10.4); Monocytes # (auto) 0.75 K/uL (0.11-0.59); Neutrophils # (auto) 3.52 K/uL (1.4-6.5); Neutrophils % (auto) 60.8 %; Platelet Count 203 K/uL (130-400); RDW Coefficient of Variation 13.7 % (11.5-14.5); RDW Standard Deviation 42.1 fL (36.4-46.3); Red Blood Count 4.66 M/uL (4.2-5.4); White Blood Count 5.79 K/uL (4.8-10.8)
[2021-02-15 07:18] LABS: BUN Creatinine Ratio 14.3 (10-20); Calcium 8.5 mg/dl (8.5-10.1); Creatinine Clr Calc Pharmacy 91.5 ml/min; Est GFR (African American) 99.7; Est GFR (Non-African American) 86.1; Potassium 3.7 mmol/L (3.5-5.1)
[2021-02-15 07:21] LABS: Albumin Globulin Ratio 0.6 (0.9-2); Bilirubin,Total 0.9 mg/dl (0.2-1); Globulin 4.8 gm/dl (2.5-4.0); Total Protein 7.8 gm/dl (6.4-8.2)
[2021-02-15] MEDS: amLODIPine BESYLATE 5 MG TAB PO SCH (07:56)
--- NOTE | 2021-02-15 11:40 | Hospitalist Progress Note ---
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: Right leg pain since September Large lesion within the proximal to mid right tibial shaft in MRI on 02/04/2021 MRI of the lumbar spine showed mild to moderate degenerative findings in the lumbar spine, minimal acute or subacute compression fracture of L2 vertebral body, relation of low T1 and bright inversion recovery signal in the right side of the L2 vertebral body possible etiologies include atypical appearing benign hemangioma versus malignant neoplasm Abnormal pharmaceutical localization at the junction of the proximal and mid third of the right tibia, anterior aspect of the left third rib and several foci throughout the calvarium suggesting underlying metastatic disease Nondisplaced pathological fracture involving the proximal tibial shaft with aggressive periosteal reaction Suggestive of neoplasm/multiple myeloma Ortho consulted-appreciate input and recommendation We will keep appointment with the orthopedic surgeon from [place] We will keep the leg immobilized Will see him marketing programs specialist in [place] as an outpatient for further recommendation on the pathological fracture Multiple bone lesions involving the ribs, spine, skeletal bone and calvarium s uggesting possible bone malignancy/secondary/multiple myeloma Increased total protein-we will get work-up for multiple myeloma Negative colonoscopy 4 years ago R/O any Ovarian/Uterine pathology CEA-normal, TSH normal CA 199 and CA-125 are pending Multiple myeloma work-up is pending to ESR is only 28-doubt about multiple myeloma (2) Acute deep vein thrombosis (DVT) of right lower extremity: History of prothrombin gene mutation and DVT Not been taking anticoagulation for long time Noted to have right proximal popliteal DVTs Discussed with the patient and will start Lovenox CTA did show -small/peripheral distal segmental/subsegmental pulmonary emboli within branches of the right lower lobe pulmonary artery We will continue subcu Lovenox for now and will discuss with the oncologist for further management (3) Hypothyroidism: Continue replacement (4) Acute hypokalemia: We will give supplement and hold hydrochlorothiazide Potassium has been normalized (5) Prothrombin gene mutation: (6) Myositis: MRI scan did show associated myositis involving right medial head of gastrocnemius Likely discharge on Tuesday Admission and Anticipated Discharge Date Admission Date: February 13, 2021 Subjective 02/14/2021 The patient was seen and examined in medical telemetry unit She denies any pain in the leg today Denies any other symptoms 02/15/2021 The patient was seen and examined in medical telemetry unit She remains stable and complains of pain in the right leg especially on weightbearing Denies any other symptoms Review of Systems Review of Systems: All systems reviewed and are unremarkable except as noted below Musculoskeletal: Pain in the right leg with movement and weightbearing Physical Exam Physical Exam: Lying in bed comfortably Constitutional: well developed, well nourished and + obese; not ill appearing Eyes: PERRL, conjunctivae normal, anicteric sclerae ENMT: external ear and nose normal, oropharynx normal Neck: trachea midline, no thyromegaly Respiratory: no respiratory distress Auscultation: lungs clear to auscultation bilaterally Cardiovascular: Rate/Rhythm: regular rate, regular rhythm and + tachycardic Heart Sounds: no murmur Extremities: + edema (Trace edema bilaterally) Gastrointestinal (Abdomen): Inspection/Auscultation: normal bowel sounds; abdomen not distended Percussion/Palpation: abdomen soft; abdomen nontender Musculoskeletal: No acute arthritis in any joint but right leg is painful on putting pressure Neurologic: Alert, awake and oriented x3 Psychiatric: A+Ox3, euthymic affect Lymphatic: no cervical or axillary lymphadenopathy Results & Data Results & Data ([facility]) Vital Signs (Past 12 Hours) Vital Signs Temp Pulse Pulse Resp BP Pulse Ox 02/15/21 08:00 104 H 02/15/21 07:32 37.0 C 89 18 135/91 94 02/15/21 02:48 36.7 C 101 H 18 132/80 93 Laboratory Results Short CBC 02/15/21 Range/Units 06:41 WBC 5.79 (4.8-10.8) K/uL Hgb 13.2 (12.0-16.0) g/dL Hct 39.5 (37-47) % Plt Count 203 (130-400) K/uL BMP 02/15/21 06:41 Sodium 140 Potassium 3.7 Chloride 108 H Carbon Dioxide 27 BUN 10 Creatinine 0.72 Glucose 98 Calcium 8.5 Liver Function 02/15/21 Range/Units 06:41 Total Bilirubin 0.9 (0.2-1) mg/dl AST 12 L (15-37) U/L ALT 17 (12-78) U/L Alkaline Phosphatase 72 (45-117) U/L Albumin 3.0 L (3.4-5.0) gm/dl Medications Administered Current Inpatient Medications Amlodipine Besylate (Amlodipine Besylate 5 Mg Tab) 5 mg PO QAM [facility] Stop: 03/16/21 08:59 Last Admin: 02/15/21 07:56 Dose: 5 mg Documented by: Enoxaparin Sodium (Enoxaparin Inj 120 Mg/0.8 Ml Syr) 120 mg SQ Q12H [facility] Stop: 03/16/21 06:59 Last Admin: 02/15/21 06:00 Dose: 120 mg Documented by: Hydromorphone HCl (Hydromorphone Inj 0.5 Mg/0.5 Ml Syr) 0.5 mg IV Q4H PRN PRN Reason: Pain Stop: 02/27/21 19:54 Last Admin: 02/14/21 21:02 Dose: 0.5 mg Documented by: Levothyroxine Sodium (Levothyroxine Sodium 50 Mcg Tablet) 50 mcg PO DAILYBB [facility] Stop: 03/16/21 06:29 Last Admin: 02/15/21 06:00 Dose: 50 mcg Documented by: (1) 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
[2021-02-15] MEDS ORDERED: ACETAMINOPHEN 325 MG TAB PO PRN (22:25)
[2021-02-16] MEDS: LEVOTHYROXINE SODIUM 50 MCG TABLET PO SCH (06:02)
[2021-02-16 06:31] LABS: Hematocrit (blood only) 39.7 % (37-47); Hemoglobin 13.6 g/dL (12.0-16.0); Mean Corpuscular Hemoglobin 28.8 pg (25-34); Mean Corpuscular Hgb Conc 34.3 g/dL (32-36); Mean Corpuscular Volume 84.1 fL (80-100); Mean Platelet Volume 9.2 fL (7.4-10.4); Platelet Count 197 K/uL (130-400); RDW Coefficient of Variation 13.6 % (11.5-14.5); RDW Standard Deviation 41.6 fL (36.4-46.3); Red Blood Count 4.72 M/uL (4.2-5.4); White Blood Count 5.78 K/uL (4.8-10.8)
[2021-02-16 07:11] LABS: Creatinine Clr Calc Pharmacy 88.7 ml/min; Est GFR (African American) 98.1; Est GFR (Non-African American) 84.6
[2021-02-16] MEDS: ENOXAPARIN INJ 120 MG/0.8 ML SYR SQ SCH ×2 (07:58→20:28)
[2021-02-16] MEDS: amLODIPine BESYLATE 5 MG TAB PO SCH (07:58)
--- NOTE | 2021-02-16 09:09 | Hospitalist Progress Note ---
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 Right leg pain since September Large lesion within the proximal to mid right tibial shaft in MRI on 02/04/2021 MRI of the lumbar spine showed mild to moderate degenerative findings in the lumbar spine, minimal acute or subacute compression fracture of L2 vertebral body, relation of low T1 and bright inversion recovery signal in the right side of the L2 vertebral body possible etiologies include atypical appearing benign hemangioma versus malignant neoplasm. Abnormal pharmaceutical localization at the junction of the proximal and mid third of the right tibia, anterior aspect of the left third rib and several foci throughout the calvarium suggesting underlying metastatic disease Nondisplaced pathological fracture involving the proximal tibial shaft with aggressive periosteal reaction Suggestive of neoplasm/multiple myeloma Ortho consulted-appreciate input and recommendation Spoke with Orthopedic oncology at [place] Dr. Polk and Dr. Stoll who [facility] the [facility], splint in place will need heme/onc establishment, has appt with Dr. Taylor 02/20/21 RLE DVT and RLL subsegmental PE continue weight based lovenox 120mg q12hr hx of LLE DVT, prothrombin gene mutation had been anticoagulated in past and was off anticoagulation for a while Lovenox has been started since admission New onset afib pt has been in afib on admission per tele monitor has been on weight based lovenox 120mg q12h start metoprolol tartrate 25mg bid (HR currently 80-100s) Echo of the heart showed-A. fib with ventricular response 100 210 bpm, LV is normal in size, moderate concentric LV hypertrophy, LV wall motion is normal, EF 55 to 60%, there is no significant valvular disease, lipid atrium is mildly dilated, there is no pericardial effusion, Doppler findings do not suggest pulmonary hypertension Multiple bone lesions involving the ribs, spine, skeletal bone and calvarium suggesting possible bone malignancy/secondary/multiple myeloma Increased total protein-we will get work-up for multiple myeloma Negative colonoscopy 4 years ago R/O any Ovarian/Uterine pathology CEA-normal, TSH normal CA 199 and CA-125 are pending Multiple myeloma work-up is pending (2) Hypothyroidism: Continue replacement TSH nml (3) Acute hypokalemia: We will give supplement and hold hydrochlorothiazide Potassium has been normalized (4) Prothrombin gene mutation: (5) Myositis: MRI scan did show associated myositis involving right medial head of gastrocnemius Dispo: admitted to [facility]; accepted to [facility] pending bed; Transfer center will reach out when bed available but made aware it may not be today; also spoke to Dr. Polk of ortho oncology FULL CODE Pt was seen and examined in collaboration with Dr. Dickerson, please see addendum Admission and Anticipated Discharge Date Admission Date: February 13, 2021 Supervising Physician Co-Signing Physician Notes Attending addendum: The patient was seen and examined him in medical telemetry unit She remains stable and denies any chest pain, palpitation or shortness of breath at rest Her pain in the right leg remains stable to On examination Lying in bed comfortably Hemodynamically stable with heart rate at around 108/min Chest-clear to auscultate bilaterally Heart-S1-S2 regular Abdomen-benign Extremities-trace edema bilaterally Right lower extremity is in partial cost [employer]ITE [employer]NER-alert, awake and oriented x3 Her labs and imaging studies reviewed Echo has been pending She has been accepted to [facility] for bone biopsy and further management of her pathological fracture Agree with assessment and plan as outlined above by BENITA Petty DR Subjective Pt was seen and examined in 282-2. Follow up RLE DVT and R tibia fracture. She feels fine w/o complaint. Denies leg pain except with movement. Denies f/c/s, dizziness, lightheaded, chest pain, sob, n/v/d. Tolerating normal diet. + BM. She states she has not got up and moved around and has been in bed since hospitalization. She just wants to keep pushing forward to determine her diagnosis. Review of Systems Review of Systems: All systems reviewed & are unremarkable except as noted in HPI & below Physical Exam Physical Exam: Gen: WD/WN, F, lying in bed, NAD, A&O x3 HEENT: Normocephalic, atraumatic, conjunctivae moist, sclerae anicteric, mucous membranes moist. Lung: Clear to Auscultation bilaterally, no wheezes/rales/rhonchi Heart: IRR/IRR, no murmurs, rubs, or gallops Abdomen: Soft, NT, ND +BS x 4 Extremities: obese lower ext, No LLE edema, RLE splint in place, NVI distally Skin: Warm, no rash, negative turgor. 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
[2021-02-16] MEDS: METOPROLOL TARTRATE 25 MG TAB PO SCH ×2 (10:56→21:34)
[2021-02-16] MEDS ORDERED: METOPROLOL TARTRATE 1 MG/ML VIAL IV PRN (14:20)
--- NOTE | 2021-02-16 17:38 | Electrocardiogram Report ---
Test Reason : Blood Pressure : / mmHG Vent. Rate : 107 BPM Atrial Rate : 092 BPM P-R Int : 000 ms QRS Dur : 086 ms QT Int : 332 ms P-R-T Axes : 000 181 197 degrees QTc Int : 443 ms Suspect arm lead reversal, interpretation assumes no reversal Atrial fibrillation with rapid ventricular response Incomplete right bundle branch block Abnormal ECG When compared with ECG of 13-FEB-2021 19:22, QRS axis Shifted left Confirmed by Manjit Diaz ([id number]) on 02/16/2021 5:37:35 PM Referred By: REFERRED SELF Confirmed By:Lorne Diaz
[2021-02-16] MEDS ORDERED: METOPROLOL TARTRATE 1 MG/ML VIAL IV SCH (18:00)
[2021-02-17] MEDS: LEVOTHYROXINE SODIUM 50 MCG TABLET PO SCH (05:51)
[2021-02-17] MEDS: ENOXAPARIN INJ 120 MG/0.8 ML SYR SQ SCH (07:54)
[2021-02-17] MEDS: METOPROLOL TARTRATE 25 MG TAB PO SCH (07:54)
--- NOTE | 2021-02-17 11:07 | Hospitalist Progress Note ---
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 Right leg pain since September Large lesion within the proximal to mid right tibial shaft in MRI on 02/04/2021 MRI of the lumbar spine showed mild to moderate degenerative findings in the lumbar spine, minimal acute or subacute compression fracture of L2 vertebral body, relation of low T1 and bright inversion recovery signal in the right side of the L2 vertebral body possible etiologies include atypical appearing benign hemangioma versus malignant neoplasm. Abnormal pharmaceutical localization at the junction of the proximal and mid third of the right tibia, anterior aspect of the left third rib and several foci throughout the calvarium suggesting underlying metastatic disease Nondisplaced pathological fracture involving the proximal tibial shaft with aggressive periosteal reaction Suggestive of neoplasm/multiple myeloma Ortho consulted-appreciate input and recommendation Spoke with Orthopedic oncology at [place] Dr. Polk and Dr. Stoll who accepts the patient Patient also accepted by [facility] hospitalist keep non weightbearing, splint in place will need heme/onc establishment, has appt with Dr. Taylor 02/20/21 Awaiting to be transferred to [facility] [place] RLE DVT and RLL subsegmental PE continue weight based lovenox 120mg q12hr hx of LLE DVT, prothrombin gene mutation had been anticoagulated in past and was off anticoagulation for a while Lovenox has been started since admission New onset afib pt has been in afib on admission per tele monitor has been on weight based lovenox 120mg q12h start metoprolol tartrate 25mg bid (HR currently 80-100s) Echo of the heart showed-A. fib with ventricular response 100 210 bpm, LV is normal in size, moderate concentric LV hypertrophy, LV wall motion is normal, EF 55 to 60%, there is no significant valvular disease, lipid atrium is mildly dilated, there is no pericardial effusion, Doppler findings do not suggest pulmonary hypertension Heart rate remains controlled but is still in fibrillation Multiple bone lesions involving the ribs, spine, skeletal bone and calvarium suggesting possible bone malignancy/secondary/multiple myeloma Increased total protein-we will get work-up for multiple myeloma Negative colonoscopy 4 years ago R/O any Ovarian/Uterine pathology CEA-normal, TSH normal CA 199 and CA-125 are pending Multiple myeloma work-up is pending (2) Hypothyroidism: Continue replacement TSH nml (3) Acute hypokalemia: We will give supplement and hold hydrochlorothiazide Potassium has been normalized (4) Prothrombin gene mutation: (5) Myositis: MRI scan did 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 Polk of ortho oncology FULL CODE Awaiting to be transferred Admission and Anticipated Discharge Date Admission Date: February 13, 2021 Subjective 02/14/2021 The patient was seen and examined in medical telemetry unit She denies any pain in the leg today Denies any other symptoms 02/15/2021 The patient was seen and examined in medical telemetry unit She remains stable and complains of pain in the right leg especially on weightbearing Denies any other symptoms 02/17/2021 The patient was seen and examined in medical telemetry unit She remains stable with controlled heart rate and control pain whenever she is not moving She denies any other symptoms Review of Systems Review of Systems: All systems reviewed and are unremarkable except as noted below Musculoskeletal: Pain in right leg Physical Exam Constitutional: well developed, well nourished and + obese; not ill appearing Eyes: PERRL, conjunctivae normal, anicteric sclerae ENMT: external ear and nose normal, oropharynx normal Neck: trachea midline, no thyromegaly Respiratory: no respiratory distress Auscultation: lungs clear to auscultation bilaterally Cardiovascular: Rate/Rhythm: regular rate, regular rhythm and + tachycardic Heart Sounds: no murmur Extremities: + edema (Trace edema bilaterally) Gastrointestinal (Abdomen): Inspection/Auscultation: normal bowel sounds; abdomen not distended Percussion/Palpation: abdomen soft; abdomen nontender Musculoskeletal: Right leg is in partial cost. Pain is worse with movement of the right leg Psychiatric: A+Ox3, euthymic affect Lymphatic: no cervical or axillary lymphadenopathy Results & Data Results & Data ([facility]) Vital Signs (Past 12 Hours) Vital Signs Temp Pulse Pulse Resp BP Pulse Ox 02/17/21 08:19 36.7 C 84 20 123/86 96 02/17/21 08:05 36.5 C 92 H 20 126/81 95 02/17/21 07:42 87 02/17/21 03:41 36.7 C 79 18 125/81 96 Medications Administered Current Inpatient Medications Acetaminophen (Acetaminophen 325 Mg Tab) 650 mg PO Q4H PRN PRN Reason: Pain Stop: 03/17/21 22:24 Last Admin: 02/15/21 22:54 Dose: 650 mg Documented by: Enoxaparin Sodium (Enoxaparin Inj 120 Mg/0.8 Ml Syr) 120 mg SQ Q12H ALINA Stop: 03/16/21 06:59 Last Admin: 02/17/21 07:54 Dose: 120 mg Documented by: Hydromorphone HCl (Hydromorphone Inj 0.5 Mg/0.5 Ml Syr) 0.5 mg IV Q4H PRN PRN Reason: Pain Stop: 02/27/21 19:54 Last Admin: 02/14/21 21:02 Dose: 0.5 mg Documented by: Levothyroxine Sodium (Levothyroxine Sodium 50 Mcg Tablet) 50 mcg PO DAILYBB ALINA Stop: 03/16/21 06:29 Last Admin: 02/17/21 05:51 Dose: 50 mcg Documented by: Metoprolol Tartrate (Metoprolol Tartrate 25 Mg Tab) 25 mg PO BID ALINA Stop: 03/18/21 09:29 Last Admin: 02/17/21 07:54 Dose: 25 mg Documented by: Metoprolol Tartrate (Metoprolol Tartrate 1 Mg/Ml Vial) 5 mg IV Q6 PRN PRN Reason: For increase in HR >130 Stop: 03/18/21 14:19 (1) 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
--- NOTE | 2021-02-17 18:27 | Discharge Summary ---
Date of Service February 17, 2021 Admission HPI Per Admitting Provider She is a 70-year-old female with significant past medical history of bone lesion involving the right tibia since September with some pain off and on in the right leg. She went to see her new PCP today at [facility] and when she was trying to climb up to the examination table she got more pain involving the right leg and from that point she was brought into the emergency room for further evaluation. She does not have any pain at rest and she denies any other symptoms of fever and/or chills, cough or phlegm, palpitation, any abdominal pain nausea and/or vomiting. She has had right leg pain since September and has had course of prednisone with improvement in the past. She underwent an MRI of the tibia-fibula on of this month and that showed large lesion within the proximal mid to right tibial shaft with marked cortical thinning at the posterior upper portion of this lesion and aggressive periostitis noted at this lesion too. The scan also showed myositis involving the right medial head of gastrocnemius muscle. She also had a bone scan done on of this month which showed abnormal pharmaceutical localization at the junction of the proximal and middle third of the right tibia and other area as mentioned below. At the emergency room she was hemodynamically stable with blood pressure on the upper side and the x-ray of the right tibia-fibula showed pathological fracture and also noted to have deep venous thrombosis involving the lower extremity. Her D-dimer was markedly elevated and she will have a CT air to rule out pulmonary embolism as well. Was admitted to medical telemetry unit for continuation of care Admission Exam Per Admitting Provider Physical Exam: Lying in bed comfortably Constitutional: well developed, well nourished and + obese; not ill appearing Eyes: PERRL, conjunctivae normal, anicteric sclerae ENMT: external ear and nose normal, oropharynx normal Neck: trachea midline, no thyromegaly Respiratory: no respiratory distress Auscultation: lungs clear to auscultation bilaterally Cardiovascular: Rate/Rhythm: regular rate, regular rhythm and + tachycardic Heart Sounds: no murmur Extremities: + edema (Trace edema bilaterally) Gastrointestinal (Abdomen): Inspection/Auscultation: normal bowel sounds; abdomen not distended Percussion/Palpation: abdomen soft; abdomen nontender Musculoskeletal: Pain in the right leg with movement Neurologic: Alert awake and oriented x3, no focal sensory or motor deficit appreciated Psychiatric: A+Ox3, euthymic affect Principal Diagnosis Pathologic fracture of Right Tibia 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, calvarium Occlusive Right Popliteal DVT Right lower lobe subsegmental DVT New onset Afib prothrombin gene mutation Discharge Exam Constitutional well developed, well nourished and + obese; not ill appearing Eyes PERRL, conjunctivae normal, anicteric sclerae ENMT external ear and nose normal, oropharynx normal Neck trachea midline, no thyromegaly Respiratory no respiratory distress Auscultation: lungs clear to auscultation bilaterally Cardiovascular Rate/Rhythm: regular rate, regular rhythm and + tachycardic Heart Sounds: no murmur Extremities: + edema (Trace edema bilaterally) Gastrointestinal (Abdomen) Inspection/Auscultation: normal bowel sounds; abdomen not distended Percussion/Palpation: abdomen soft; abdomen nontender Psychiatric A+Ox3, euthymic affect Lymphatic no cervical or axillary lymphadenopathy Discharge Data Allergies Allergy/AdvReac Type Severity Reaction Status Date / Time No Known Allergies Allergy Unverified 02/13/21 18:22 Consultations 02/13/21 18:21 ED Decision to Admit Stat 02/14/21 07:56 Consult Orthopedic Surgery Routine 02/17/21 14:04 Burn CD for patient Routine Ordered Studies 02/13/21 15:16 US venous doppler LE RT Stat 02/13/21 19:36 CT angio chest PE protocol Stat Hospital Course (1) 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 Right leg pain since September Large lesion within the proximal to mid right tibial shaft in MRI on 02/04/2021 MRI of the lumbar spine showed mild to moderate degenerative findings in the lumbar spine, minimal acute or subacute compression fracture of L2 vertebral body, relation of low T1 and bright inversion recovery signal in the right side of the L2 vertebral body possible etiologies include atypical appearing benign hemangioma versus malignant neoplasm. Abnormal pharmaceutical localization at the junction of the proximal and mid third of the right tibia, anterior aspect of the left third rib and several foci throughout the calvarium suggesting underlying metastatic disease Nondisplaced pathological fracture involving the proximal tibial shaft with aggressive periosteal reaction Suggestive of neoplasm/multiple myeloma Ortho consulted-appreciate input and recommendation Spoke with Orthopedic oncology at [place] Dr. Polk and Dr. Stoll who accepts the patient [facility], splint in place will need heme/onc establishment, has appt with Dr. Taylor 02/20/21 Awaiting to be transferred to [facility] [place] RLE DVT and RLL subsegmental PE continue weight based lovenox 120mg q12hr hx of LLE DVT, prothrombin gene mutation had been anticoagulated in past and was off anticoagulation for a while Lovenox has been started since admission New onset afib pt has been in afib on admission per tele monitor has been on weight based lovenox 120mg q12h start metoprolol tartrate 25mg bid (HR currently 80-100s) Echo of the heart showed-A. fib with ventricular response 100 210 bpm, LV is normal in size, moderate concentric LV hypertrophy, LV wall motion is normal, EF 55 to 60%, there is no significant valvular disease, lipid atrium is mildly dilated, there is no pericardial effusion, Doppler findings do not suggest pulmonary hypertension Heart rate remains controlled but is still in fibrillation Multiple bone lesions involving the ribs, spine, skeletal bone and calvarium suggesting possible bone malignancy/secondary/multiple myeloma Increased total protein-we will get work-up for multiple myeloma Negative colonoscopy 4 years ago R/O any Ovarian/Uterine pathology CEA-normal, TSH normal CA 199 and CA-125 are pending Multiple myeloma work-up is pending (2) Hypothyroidism: Continue replacement TSH nml (3) Acute hypokalemia: We will give supplement and hold hydrochlorothiazide Potassium has been normalized (4) Prothrombin gene mutation: (5) Myositis: 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, calvarium Occlusive Right Popliteal DVT Right lower lobe subsegmental DVT New onset Afib prothrombin gene mutation Condition on Discharge: Good Activity: Per Instructions section Activity Comment: Nonweightbearing to Right Lower extremity Weightbearing: Right non-weightbearing Non-emergency contact: Primary Care Provider and Hospitalist Call non-emergency contact if: you have any medication questions, your symptoms worsen, your pain is not controlled, your pain is worsening, you have a fever and your temperature is above 101 Follow-up/Referrals: Monica Fair MD [Primary Care Provider] - Diet: Regular Addtl Attending Provider Instructions: You were admitted to [facility] for Right tibial fracture and concern for underlying cancer. You were also diagnosed with a blood clot in your right leg and in your right lung. You were started on lovenox (blood thinner) to treat the blood clot. During hospitalization your heart was found to be in atrial fibrillation which is an abnormal heart rhythm. You were started on metoprolol to help control your heart rate. Due to the nature of your fracture, orthopedics has recommended we transfer you to [facility] for ongoing medical and orthopedic care. All of her inpatient medications were continued on transfer as follows: Current Inpatient Medications Acetaminophen (Acetaminophen 325 Mg Tab) 650 mg PO Q4H PRN PRN Reason: Pain Stop: 03/17/21 22:24 Last Admin: 02/15/21 22:54 Dose: 650 mg Documented by: Enoxaparin Sodium (Enoxaparin Inj 120 Mg/0.8 Ml Syr) 120 mg SQ Q12H [facility] Stop: 03/16/21 06:59 Last Admin: 02/16/21 07:58 Dose: 120 mg Documented by: Hydromorphone HCl (Hydromorphone Inj 0.5 Mg/0.5 Ml Syr) 0.5 mg IV Q4H PRN PRN Reason: Pain Stop: 02/27/21 19:54 Last Admin: 02/14/21 21:02 Dose: 0.5 mg Documented by: Levothyroxine Sodium (Levothyroxine Sodium 50 Mcg Tablet) 50 mcg PO DAILYBB [facility] Stop: 03/16/21 06:29 Last Admin: 02/16/21 06:02 Dose: 50 mcg Documented by: Metoprolol Tartrate (Metoprolol Tartrate 25 Mg Tab) 25 mg PO BID ALINA Stop: 03/18/21 09:29 Last Admin: 02/16/21 10:56 Dose: 25 mg Documented by: Metoprolol Tartrate (Metoprolol Tartrate 1 Mg/Ml Vial) 5 mg IV Q6 PRN PRN Reason: For increase in HR >130 Stop: 03/18/21 14:19 Pending Studies at Discharge: Yes Stand-Alone Forms: My [facility] Skilled Items Patient informed of condition?: Yes DNR: No Discharge Level of Care: Other Communicable Disease: No Discharge Prognosis: Stable Lines: Peripheral IV Urinary Catheter: No Medications and DC Order Prescriptions: Continued potassium 99 mg Tablet 99 mg PO QAM RF: 0 levothyroxine [Synthroid] 50 mcg tablet 50 mcg PO QAM RF: 0 hydrochlorothiazide 25 mg tablet 25 mg PO QAM RF: 0 turmeric root extract 500 mg Capsule 500 mg PO QAM RF: 0 Discharge Orders: Discharge Order (Routine); Ordered 02/17/21 Ordered By: Adalberto Dickerson Admission Data Admit Date/Time: 02/13/21 19:23 Attending Provider: Adalberto Dickerson Admit Provider: Adalberto Dickerson Primary Care Provider: Monica Fair Other Providers: Adalberto Dickerson ; Mark Moncada Other Interventions: Discharge Summary Assessment (RN) Last Done: 02/17/21 14:32
[2021-02-18 10:19] LABS: Albumin 3.5 g/dL (3.8-4.8); Alpha 1 Globulin 0.3 g/dL (0.2-0.3); Alpha 2 Globulin 0.7 g/dL (0.5-0.9); Beta-1-Globulin 0.4 g/dL (0.4-0.6); Beta-2-Globulin 0.4 g/dL (0.2-0.5); CA 125 9 U/mL (<35); Cancer Antigen 19-9 24 U/mL (<34); Gamma Globulin 2.1 g/dL (0.8-1.7); Monoclonal Protein Band 1 1.8 g/dL (NONE DETECTED); Monoclonal Protein Band 2 DNR g/dL (NONE DETECTED); Monoclonal Protein Band 3 DNR g/dL (NONE DETECTED); Total Protein 7.3 g/dL (6.1-8.1)
[2021-02-19 10:51] LABS: Abnormal Protein Band 1 8 mg/24 h (NONE DETECTED); Abnormal Protein Band 2 DNR mg/24 h (NONE DETECTED); Abnormal Protein Band 3 DNR mg/24 h (NONE DETECTED); Creatinine, 24 hr Urine 1.06 g/24 h (0.50-2.15); Protein, Urine 24 Hour 115 mg/24 h (<150); Ur Protein/Creatinine Rat mg/g 108 mg/g creat (< OR = 114); Urine Protein/Creatinine Ratio 0.108 (< OR = 0.114)
== END 2021-02-17 17:23 | disposition short-term general hospital (02) | DRG 542 ==
LOC: ED 14:47 → 2N 19:23